=== PATIENT | female | born 1945 | race Caucasian/White ===

== ENCOUNTER → 2023-11-18 | Outpatient (CLI) | payer MEDICARE, OTHER ==
[~2023-11-18] MED LIST: ACET500 PO; AMLO10 PO; ASPI81CH PO; ATOR20 PO; Actonel150 MG PO; COQ1050 MG PO; Crestor20 MG; Curcumin1 GM PO; DAILY FIBER0.52 GM PO; FLAX PO; IBUP400; LORA1SY; LORATADINE PO; LOSA50 PO; NAPR500; OXYC5 PO; Singulair10 MG PO; [UNRECOGNIZED DRUG - OTHER] PO; [UNRECOGNIZED DRUG - OTHER] PO; [UNRECOGNIZED DRUG - REMARK] PO
== END | disposition home or self-care (01) ==
LOC: LAB 09:59 → LAB SHORT 09:59
DX: I12.9 Hypertensive chronic kidney disease with stage 1 through stage 4 chronic kidney disease, or unspecified chronic kidney disease (principal); N18.2 Chronic kidney disease, stage 2 (mild)
CPT/HCPCS: 82043